=== PATIENT | female | born 1960 | race Two or more races ===

== ENCOUNTER → 2017-11-13 | Outpatient (CLI) | payer MEDICARE, OTHER ==
--- NOTE | 2017-11-13 16:39 | RAD ---
CT maxillofacial without contrast 11/13/2017 Indication: Ptosis of the left eye. Eyelid retraction of the right upper eyelid. Graves orbitopathy. Comparison: None available. Technique: Multiple axial CT images of the maxillary facial structures are provided. Without intravenous contrast. Coronal and sagittal reformats are provided. Findings: Visualized portions of the brain parenchyma. Normal. No ventriculomegaly. Sellar and suprasellar cistern are normal. There is straightening of the optic nerves bilaterally with suggestion of increase in intraorbital fat. There is enlargement of the right inferior rectus muscle. No suspicious orbital mass is identified. Globes are spherical and contour. No osseous antibodies identified. Paranasal sinuses are well aerated. Parotid spaces and submandibular spaces appear normal. Nasopharynx and oropharynx are normal in appearance. Lung base and floor of mouth appear normal. Mandible are intact. Temporal mandibular joints are normal. Mastoid air cells are well aerated. Skull base is intact. Impression: There is enlargement of the right inferior rectus muscle compatible with Graves' orbitopathy. There is increase in bilateral intraorbital fat is demonstrated by straightening of the optic nerves. PQRS Compliance Statement: One or more of the following individualized dose reduction techniques were utilized for this examination: 1. Automated exposure control 2. Adjustment of the mA and/or kV according to patient size 3. Use of iterative reconstruction technique
== END | disposition home or self-care (01) ==
LOC: CT 15:41
PROVIDERS: ATTEND Ophthalmology
DX: H02.531 Eyelid retraction right upper eyelid (principal); E05.00 Thyrotoxicosis with diffuse goiter without thyrotoxic crisis or storm; H02.402 Unspecified ptosis of left eyelid; H57.8 Other specified disorders of eye and adnexa
CPT/HCPCS: 70486

== ENCOUNTER → 2018-03-20 | Outpatient (CLI) | payer OTHER ==
--- NOTE | 2018-03-20 16:39 | RAD ---
EXAM: Left foot, 3 views. HISTORY: Stubbed great toe. COMPARISON: None. FINDINGS: Frontal, lateral and oblique views of the left foot are obtained. There is a mildly displaced fracture of the tuft of the second distal phalanx, of uncertain chronicity. No additional fracture is seen. No foreign body is seen. IMPRESSION: Mildly displaced fracture of the tuft of the second distal phalanx, of uncertain chronicity. No convincing first phalanx fracture is seen. Electronically signed by: Aspen Ahn MD (03/20/2018 4:36 PM) [facility]
== END | disposition home or self-care (01) ==
LOC: DXRAD 16:21
PROVIDERS: ATTEND Family Medicine
DX: S99.292A Other physeal fracture of phalanx of left toe, initial encounter for closed fracture (principal); X58.XXXA Exposure to other specified factors, initial encounter; Y93.89 Activity, other specified; Y92.89 Other specified places as the place of occurrence of the external cause; Y99.8 Other external cause status
CPT/HCPCS: 73620

== ENCOUNTER → 2018-04-08 | Outpatient (CLI) | payer OTHER ==
--- NOTE | 2018-04-08 11:00 | CARD ---
MR#: [id number] Date of Study: 04/08/2018 Ordering Physician: CHHAYA GAR, Referring Physician: CHHAYA GAR, Tech: Nina Campos RDCS APPROVED REPORT EXAM: Two-dimensional and M-mode echocardiogram with Doppler and color Doppler. INDICATION Cardiac Disease: CAD Surgery/Intervention CABG: Date: 2013 2D DIMENSIONS RVDd2.1 (2.9-3.5cm)Left Atrium(2D)3.3 (1.6-4.0cm) IVSd0.9 (0.7-1.1cm)Aortic Root(2D)2.4 (2.0-3.7cm) LVDd4.7 (3.9-5.9cm)LVOT Diameter2.1 (1.8-2.4cm) PWd0.9 (0.7-1.1cm)LVDs3.0 (2.5-4.0cm) FS (%) 30.0 %SV66.8 ml LVEF(%)60.0 (>50%) Aortic Valve AoV Peak Jesus.117.4cm/sAoV VTI24.7cm AO Peak GR.5.5mmHgLVOT Peak Jesus.100.4cm/s LVOT VTI 23.84cmAO Mean GR.3mmHg DAVE (VMAX)2.60qh4RUC (VTI)3.22cm2 Mitral Valve MV E Hpwyijju16.7cm/sMV DECEL [id number] MV A Hpsqupff79.9cm/sMV [id number] E/A Ratio1.4MVA (PHT)4.64cm2 Pulmonary Vein S1 Jrylvkiv82.9cm/sD2 Ffkahkka35.2cm/s LEFT VENTRICLE The left ventricle is normal size. There is normal left ventricular wall thickness. The left ventricu lar systolic function is normal and the ejection fraction is within normal range. The Ejection Fracti on is 55-60%. Septal motion consistent with post-operative state, otherwise, grossly normal wall bhargav on. Transmitral Doppler flow pattern is Grade II-pseudonormal filling dynamics. RIGHT VENTRICLE The right ventricle is normal size. The right ventricular systolic function is normal. ATRIA The left atrium size is normal. The right atrium size is normal. The interatrial septum is intact wit h no evidence for an atrial septal defect or patent foramen ovale as noted on 2-D or Doppler imaging. AORTIC VALVE The aortic valve is calcified but opens well. Doppler and Color Flow revealed no significant aortic r egurgitation. There is no significant aortic valvular stenosis. MITRAL VALVE The mitral valve is normal in structure and function. There is no evidence of mitral valve prolapse. There is no mitral valve stenosis. Doppler and Color Flow revealed no mitral valve regurgitation note d. TRICUSPID VALVE The tricuspid valve is normal in structure and function. Doppler and Color Flow revealed no tricuspid valve regurgitation noted. There is no tricuspid valve stenosis. PULMONIC VALVE The pulmonic valve is not well visualized. Doppler and Color Flow revealed no pulmonic valvular regur gitation. There is no pulmonic valvular stenosis. GREAT VESSELS The aortic root is normal in size. The ascending aorta is normal in size. The IVC is normal in size a nd collapses >50% with inspiration. PERICARDIAL EFFUSION There is no evidence of significant pericardial effusion. Critical Notification Critical Value: No <Conclusion> The left ventricular systolic function is normal and the ejection fraction is within normal range. Th e Ejection Fraction is 55-60%. Septal motion consistent with post-operative state, otherwise, grossly normal wall motion. Signed by : Chhaya Gar, Electronically Approved : 04/08/2018 10:59:10
== END | disposition home or self-care (01) ==
LOC: ECHO 08:57
PROVIDERS: ATTEND Internal Medicine Cardiovascular Disease
DX: I25.10 Atherosclerotic heart disease of native coronary artery without angina pectoris (principal)
CPT/HCPCS: 93306

== ENCOUNTER → 2018-06-20 | Outpatient (CLI) | payer OTHER ==
--- NOTE | 2018-06-20 11:58 | RAD ---
Lumbar spine, 5 views, 06/20/2018: HISTORY: Low back pain radiating down left leg The lumbar vertebral heights are well-maintained. No fracture or subluxation is evident. There is moderate disc space narrowing and marginal spurring at L5-S1. There are a few other scattered marginal spurs. The other intervertebral disc spaces are well-maintained. There are mild degenerative changes involving facet joints in the lower lumbar spine. There is no evidence of spondylolysis. Extensive aortoiliac calcific plaquing is present. IMPRESSION: 1. Mild to moderate degenerative change, particularly at the L5-S1 disc level. 2. No acute bony abnormality is detected. 3. Extensive aortoiliac atherosclerosis Electronically signed by: Jr Muñiz MD (06/20/2018 11:54 AM) [facility]
== END | disposition home or self-care (01) ==
LOC: DXRAD 11:10
PROVIDERS: ATTEND Family Medicine
DX: M47.897 Other spondylosis, lumbosacral region (principal); I70.0 Atherosclerosis of aorta; M48.07 Spinal stenosis, lumbosacral region; I25.10 Atherosclerotic heart disease of native coronary artery without angina pectoris
CPT/HCPCS: 72110

== ENCOUNTER 2018-08-18 14:07 | Emergency (ER) | payer OTHER ==
[2018-08-18 14:38] VITALS: BP 122/53
[2018-08-18 14:41] LABS: BASO # 0.1 x10^3/uL (0.0-0.2); BASO % 1 % (0-3); EOS # 0.2 x10^3/uL (0.0-0.7); EOS % 3 % (0-3); HEMATOCRIT 40.4 % (36.0-47.0); HEMOGLOBIN 13.6 g/dL (12.0-15.5); LYMPH # 2.5 x10^3/uL (1.0-4.8); LYMPH % 30 % (24-48); MEAN CORPUSCULAR HEMOGLOBIN 29 pg (25-35); MEAN CORPUSCULAR HGB CONC 34 g/dL (31-37); MEAN CORPUSCULAR VOLUME 87 fL (79-100); MONO # 0.4 x10^3/uL (0.0-1.1); MONO % 5 % (0-9); NEUT % 61 % (31-73); PLATELET COUNT 172 x10^3/uL (140-400); RED BLOOD COUNT 4.63 x10^6/uL (3.50-5.40); RED CELL DISTRIBUTION WIDTH 13.7 % (11.5-14.5); WHITE BLOOD COUNT 8.3 x10^3/uL (4.0-11.0)
[2018-08-18 14:53] LABS: ALBUMIN 3.8 g/dL (3.4-5.0); ALBUMIN/GLOBULIN RATIO 1.2 (1.0-1.7); CALCIUM 9.6 mg/dL (8.5-10.1); CREATININE 0.9 mg/dL (0.6-1.0); GFR 64.5; POTASSIUM 3.7 mmol/L (3.5-5.1); TOTAL BILIRUBIN 0.3 mg/dL (0.2-1.0); TOTAL PROTEIN 6.9 g/dL (6.4-8.2)
--- NOTE | 2018-08-18 15:04 | RAD ---
EXAM: CHEST 1 VIEW History: Chest pain COMPARISON: None available. TECHNIQUE: Single portable radiograph of the chest FINDINGS: The cardiac silhouette is unremarkable. The lungs are clear bilaterally. The costophrenic sulci are clear and well demarcated. IMPRESSION: No radiographic evidence of an acute cardiopulmonary process. Electronically signed by: Clayton Hudson MD (08/18/2018 3:01 PM) [place] [id number]
--- NOTE | 2018-08-18 15:33 | PHYS DOC ---
Past History Past Medical History: A-Fib, Angina, Anxiety, Depression, Hypothyroid, Other Past Surgical History: Alcohol Use: None Drug Use: None Adult General Chief Complaint Chief Complaint: CHEST PAIN [facility] HPI 58-year-old female presents with 4 day history of chest tightness and increasing shortness of breath. Denies diaphoresis. She states that it feels it is getting somewhat more progressive, but shortness of breath is about the same. Patient has COPD history and is already on maintenance medication and rescue inhaler. She has not been using her albuterol very often. She describes the chest pressure as a tightness around the middle of her chest. Patient has a history of triple bypass so she was concerned. Her physician directed her to come to the emergency room. She has not had a measured fever at home, but has been having chills. She is not sure if this is just a flashes with menopause. Had a cough with occasional clear sputum. Review of Systems Review of Systems Constitutional: Denies fever or chills [] Eyes: Denies change in visual acuity, redness, or eye pain [] HENT: Denies nasal congestion or sore throat [] Respiratory: Cough with shortness of breath [] Cardiovascular: No additional information not addressed in HPI [] GI: Denies abdominal pain, nausea, vomiting, bloody stools or diarrhea [] : Denies dysuria or hematuria [] Musculoskeletal: Denies back pain or joint pain [] Integument: Denies rash or skin lesions [] Neurologic: Denies headache, focal weakness or sensory changes [] Endocrine: Denies polyuria or polydipsia [] All other systems were reviewed and found to be within normal limits, except as documented in this note. Allergies Allergies Allergies Coded Allergies Type Severity Reaction Last Updated Verified codeine Allergy Unknown 08/18/18 Yes Physical Exam Physical Exam Constitutional: Well developed, well nourished, no acute distress, non-toxic appearance. [] HENT: Normocephalic, atraumatic, bilateral external ears normal, oropharynx moist, no oral exudates, nose normal. [] Eyes: PERRLA, EOMI, conjunctiva normal, no discharge. [] Neck: Normal range of motion, no tenderness, supple, no stridor. [] Cardiovascular:Heart rate regular rhythm, no murmur [] Lungs & Thorax: Mild wheezing at bilateral bases[] Abdomen: Bowel sounds normal, soft, no tenderness, no masses, no pulsatile masses. [] Skin: Warm, dry, no erythema, no rash. [] Back: No tenderness, no CVA tenderness. [] Extremities: No tenderness, no cyanosis, no clubbing, ROM intact, no edema. [] Neurologic: Alert and oriented X 3, normal motor function, normal sensory function, no focal deficits noted. [] Psychologic: Affect normal, judgement normal, mood normal. [] Current Patient Data Vital Signs Vital Signs Date Time Temp Pulse Resp B/P (MAP) Pulse Ox O2 Delivery O2 Flow Rate FiO2 08/18/18 14:38 57 18 100 Room Air Lab Results Laboratory Tests Test 08/18/18 14:14 White Blood Count 8.3 x10^3/uL (4.0-11.0) Red Blood Count 4.63 x10^6/uL (3.50-5.40) Hemoglobin 13.6 g/dL (12.0-15.5) Hematocrit 40.4 % (36.0-47.0) Mean Corpuscular Volume 87 fL (79-100) Mean Corpuscular Hemoglobin 29 pg (25-35) Mean Corpuscular Hemoglobin Concent 34 g/dL (31-37) Red Cell Distribution Width 13.7 % (11.5-14.5) Platelet Count 172 x10^3/uL (140-400) Neutrophils (%) (Auto) 61 % (31-73) Lymphocytes (%) (Auto) 30 % (24-48) Monocytes (%) (Auto) 5 % (0-9) Eosinophils (%) (Auto) 3 % (0-3) Basophils (%) (Auto) 1 % (0-3) Neutrophils # (Auto) 5.0 x10^3uL (1.8-7.7) Lymphocytes # (Auto) 2.5 x10^3/uL (1.0-4.8) Monocytes # (Auto) 0.4 x10^3/uL (0.0-1.1) Eosinophils # (Auto) 0.2 x10^3/uL (0.0-0.7) Basophils # (Auto) 0.1 x10^3/uL (0.0-0.2) Sodium Level 143 mmol/L (136-145) Potassium Level 3.7 mmol/L (3.5-5.1) Chloride Level 107 mmol/L (98-107) Carbon Dioxide Level 28 mmol/L (21-32) Anion Gap 8 (6-14) Blood Urea Nitrogen 16 mg/dL (7-20) Creatinine 0.9 mg/dL (0.6-1.0) Estimated GFR (Cockcroft-Gault) 64.5 BUN/Creatinine Ratio 18 (6-20) Glucose Level 103 mg/dL (70-99) H Calcium Level 9.6 mg/dL (8.5-10.1) Total Bilirubin 0.3 mg/dL (0.2-1.0) Aspartate Amino Transferase (AST) 20 U/L (15-37) Alanine Aminotransferase (ALT) 27 U/L (14-59) Alkaline Phosphatase 75 U/L (46-116) Troponin I Quantitative < 0.017 ng/mL (0-0.055) Total Protein 6.9 g/dL (6.4-8.2) Albumin 3.8 g/dL (3.4-5.0) Albumin/Globulin Ratio 1.2 (1.0-1.7) EKG EKG Sinus rhythm, rate 61, normal axis, no ST elevations or depressions.[] Radiology/Procedures Radiology/Procedures [] Impressions: EXAM: CHEST 1 VIEW History: Chest pain COMPARISON: None available. TECHNIQUE: Single portable radiograph of the chest FINDINGS: The cardiac silhouette is unremarkable. The lungs are clear bilaterally. The costophrenic sulci are clear and well demarcated. IMPRESSION: No radiographic evidence of an acute cardiopulmonary process. Electronically signed by: Clayton Hudson MD (08/18/2018 3:01 PM) [facility] DICTATED AND SIGNED BY: CLAYTON HUDSON MD DATE: 08/18/18 [id number] CC: JOSE LUIS DURAN DO; SHARON WILLIS MD Course & Med Decision Making Course & Med Decision Making Pertinent Labs and Imaging studies reviewed. (See chart for details) Chest x-rays unremarkable. Her labs are unremarkable. Her EKG is unremarkable. Her troponin is negative. I believe the patient may be having more trouble with her COPD. I will give her a DuoNeb breathing treatment. I believe the patient is having a COPD exacerbation. I will treat her with 50 mg of prednisone for 5 days. She is stable for discharge at this time. [] Dragon Disclaimer Dragon Disclaimer This electronic medical record was generated, in whole or in part, using a voice recognition dictation system. Departure Departure: Referrals: SHARON WILLIS MD (PCP) Scripts Prednisone (PREDNISONE) 50 Mg Tablet 1 TAB PO DAILY, #5 TAB Prov: JOSE LUIS DURAN DO 08/18/18 JOSE LUIS DURAN DO Aug 18, 2018 15:33
[2018-08-18] MEDS ORDERED: IPRATRPIUM/ALBUTEROL 0.5/2.5MG 3 ML NEBU. NEB ONE (15:45)
[2018-08-18] MEDS ORDERED: PRED50TA PO (16:24)
--- NOTE | 2018-08-18 17:23 | EKG ---
[address] [address] Test Date: 2018-08-18 Test Time: 14:16:12 Pat Name: EMILY JONES Department: Room: Gender: F Therapeutic Program Worker: : 1960 Requested By: JOSE LUIS DURAN Order Number: [id number] Reading MD: Joselito Calderón MD Measurements Intervals [place] Rate: 61 P: 47 ME: 140 QRS: 62 QRSD: 76 T: 49 QT: 422 QTc: 426 Interpretive Statements SINUS RHYTHM Electronically Signed On 08-20-2018 12:21:14 CDT by Joselito Calderón MD
== END 2018-08-18 16:42 | disposition home or self-care (01) ==
LOC: ER 14:07
DX: J44.1 Chronic obstructive pulmonary disease with (acute) exacerbation (principal); I48.91 Unspecified atrial fibrillation; F41.9 Anxiety disorder, unspecified; E03.9 Hypothyroidism, unspecified; Z88.5 Allergy status to narcotic agent
CPT/HCPCS: 36415; 71045; 80053; 84484; 85025; 93005; 94640; 99285; J7620

== ENCOUNTER → 2019-02-10 | Outpatient (CLI) | payer OTHER ==
[~2019-02-10] MED LIST: PRED50TA PO
== END | disposition home or self-care (01) ==
LOC: SURG 13:55
PROVIDERS: ATTEND Anesthesiology
DX: M54.16 Radiculopathy, lumbar region (principal); M54.2 Cervicalgia; M79.10 Myalgia, unspecified site; G43.709 Chronic migraine without aura, not intractable, without status migrainosus
CPT/HCPCS: 99204

== ENCOUNTER 2019-06-14 10:30 | Emergency (ER) | payer OTHER, MEDICAID ==
[~2019-06-14] VITALS: Ht 154.9 cm; Wt 74.8 kg
--- NOTE | 2019-06-14 10:56 | PHYS DOC ---
Past History Past Medical History: A-Fib (resolved post thyroid procedure), Angina, Anxiety, Depression, Hypothyroid, Other Past Surgical History: Coronary Bypass Surgery, Smoking: Cigarettes, Less than 1pk/day Alcohol Use: None Drug Use: None Adult General Chief Complaint Chief Complaint: CHEST WALL PAIN [facility] HPI Patient is a 59-year-old female presents with right back pain that started last night, improved with a pain medication ointment that she applied last night. Was doing well when she woke up this morning but as she started moving it became wor se. No worsening with exertion. No shortness of breath beyond her usual. No new swelling in legs feet or ankles. This is not like her need for coronary artery bypass surgery which felt like indigestion at that time. Symptoms are moderate to severe in intensity. No radiation. Patient denies any loss of bowel or bladder control. No fever. No history of injectable drug use/abuse.[] Review of Systems Review of Systems Constitutional: Denies fever or chills [] Eyes: Denies change in visual acuity, redness, or eye pain [] HENT: Denies nasal congestion or sore throat [] Respiratory: Denies cough or shortness of breath [] Cardiovascular: No additional information not addressed in HPI [] GI: Denies abdominal pain, nausea, vomiting, bloody stools or diarrhea [] : Denies dysuria or hematuria [] Musculoskeletal: See history of present illness[] Integument: Denies rash or skin lesions [] Neurologic: Denies headache, focal weakness or sensory changes [] Endocrine: Denies polyuria or polydipsia [] All other systems were reviewed and found to be within normal limits, except as documented in this note. Allergies Allergies Allergies Coded Allergies Type Severity Reaction Last Updated Verified codeine Allergy Unknown 08/18/18 Yes Physical Exam Physical Exam Constitutional: Well developed, well nourished, no acute distress, non-toxic appearance. [] HENT: Normocephalic, atraumatic, bilateral external ears normal, oropharynx moist, no oral exudates, nose normal. [] Eyes: PERRLA, EOMI, conjunctiva normal, no discharge. [] Neck: Normal range of motion, no tenderness, supple, no stridor. [] Cardiovascular:Heart rate regular rhythm, no murmur [] Lungs & Thorax: Bilateral breath sounds clear to auscultation [] Abdomen: Bowel sounds normal, soft, no tenderness, no masses, no pulsatile masses. [] Skin: Warm, dry, no erythema, no rash. [] Back: Tenderness along the right side thoracic paraspinal musculature. No flail segment. No crepitus., no CVA tenderness. [] Extremities: No tenderness, no cyanosis, no clubbing, ROM intact, no edema. [] Neurologic: Alert and oriented X 3, normal motor function, normal sensory function, no focal deficits noted. [] Psychologic: Affect normal, judgement normal, mood normal. [] EKG EKG EKG shows a sinus rhythm at 56 bpm, with normal axis, QTC of 431 ms, no ST elevations. Interpreted by me at 11:30[] Radiology/Procedures Radiology/Procedures PROCEDURE: CHEST PA & LATERAL Chest radiograph 06/14/2019 11:10 AM INDICATION: Low back pain COMPARISON: August 18, 2018 TECHNIQUE: Frontal and lateral views of the chest are provided. FINDINGS: The cardiomediastinal silhouette is within normal limits. Median sternotomy changes are provided. There are no pleural effusions. There is no pulmonary vascular congestion. There is no pneumothorax. The lungs are clear. No significant osseous abnormality is identified. IMPRESSION: No acute cardiopulmonary process.[] Course & Med Decision Making Course & Med Decision Making Pertinent Labs and Imaging studies reviewed. (See chart for details) ED course: Patient arrived, was placed in bed, and tolerated exam well. She was given pain medicines and muscle relaxers which improved her pain from her initial 8 down to a 2. Findings were discussed with the patient. All questions were answered. She was discharged in improved condition. Medical decision making: There is no evidence of a pulmonary embolism, acute coronary syndrome, nor significant electrolyte abnormality. Patient does have evidence of urinary tract infection we'll be treating that. This does not appear to be pyelonephritis nor systemic toxicity. No evidence of cauda equina syndrome. No evidence of pneumonia.[] Dragon Disclaimer Dragon Disclaimer This electronic medical record was generated, in whole or in part, using a voice recognition dictation system. Departure Departure: Impression: Primary Impression: Acute thoracic back pain Additional Impression: Urinary tract infection Disposition: HOME, SELF-CARE Condition: IMPROVED Referrals: SHARON WILLIS MD (PCP) Follow-up in 2 days Patient Instructions: Back Exercises, Back Pain, Adult, Urinary Tract Infection Additional Instructions: Drink plenty of fluids. Follow-up with your regular doctor in 2 days. Return to the ER if worsening discomfort, difficulty breathing, or any other concerns. Scripts Orphenadrine Citrate (ORPHENADRINE CITRATE) 100 Mg Tablet.er 100 MG PO BID for BACK PAIN, #20 TAB.SR Prov: MIMI RETANA DO 06/14/19 Meloxicam (MELOXICAM) 7.5 Mg Tablet 7.5 MG PO DAILY for PAIN, #20 TAB Prov: MIMI RETANA DO 06/14/19 Sulfamethoxazole/Trimethoprim (BACTRIM DS TABLET) 1 Each Tablet 1 TAB PO BID for urinary tract infection, #20 TAB Prov: MIMI RETANA DO 06/14/19 Problem Qualifiers Primary Impression: Acute thoracic back pain Back pain laterality: right Qualified Codes: M54.6 - Pain in thoracic spine Additional Impression: Urinary tract infection Urinary tract infection type: site unspecified Hematuria presence: without hematuria Qualified Codes: N39.0 - Urinary tract infection, site not specified MIMI RETANA DO Jun 14, 2019 10:56
[2019-06-14] MEDS ORDERED: KETOROLAC 15 MG/ML VIAL. IV ONE (11:00)
[2019-06-14] MEDS ORDERED: ORPHENADRINE CITRATE 60 MG/2 ML VIAL. IM ONE (11:00)
--- NOTE | 2019-06-14 11:21 | RAD ---
Chest radiograph 06/14/2019 11:10 AM INDICATION: Low back pain COMPARISON: August 18, 2018 TECHNIQUE: Frontal and lateral views of the chest are provided. FINDINGS: The cardiomediastinal silhouette is within normal limits. Median sternotomy changes are provided. There are no pleural effusions. There is no pulmonary vascular congestion. There is no pneumothorax. The lungs are clear. No significant osseous abnormality is identified. IMPRESSION: No acute cardiopulmonary process. Electronically signed by: Marlen Olvera MD (06/14/2019 11:19 AM) [facility]
[2019-06-14 11:23] LABS: BASO # 0.1 x10^3/uL (0.0-0.2); BASO % 1 % (0-3); EOS # 0.2 x10^3/uL (0.0-0.7); EOS % 2 % (0-3); HEMATOCRIT 42.2 % (36.0-47.0); HEMOGLOBIN 13.9 g/dL (12.0-15.5); LYMPH # 2.1 x10^3/uL (1.0-4.8); LYMPH % 30 % (24-48); MEAN CORPUSCULAR HEMOGLOBIN 29 pg (25-35); MEAN CORPUSCULAR HGB CONC 33 g/dL (31-37); MEAN CORPUSCULAR VOLUME 88 fL (79-100); MONO # 0.6 x10^3/uL (0.0-1.1); MONO % 8 % (0-9); NEUT # 4.2 x10^3uL (1.8-7.7); NEUT % 59 % (31-73); PLATELET COUNT 175 x10^3/uL (140-400); RED BLOOD COUNT 4.82 x10^6/uL (3.50-5.40); RED CELL DISTRIBUTION WIDTH 13.6 % (11.5-14.5); WHITE BLOOD COUNT 7.1 x10^3/uL (4.0-11.0)
[2019-06-14 11:25] LABS: BARBITURATES NEG (NEG); BENZODIAZEPINES NEG (NEG); CANNABINOIDS NEG (NEG); COCAINE NEG (NEG); METHADONE NEG (NEG); OPIATES NEG (NEG); PHENCYCLIDINE NEG (NEG)
[2019-06-14 11:26] LABS: AMPHETAMINE/METHAMPHETAMINE NEG (NEG)
[2019-06-14 11:35] LABS: ALBUMIN 3.9 g/dL (3.4-5.0); ALBUMIN/GLOBULIN RATIO 1.2 (1.0-1.7); CREATININE 0.8 mg/dL (0.6-1.0); GFR 73.7; MAGNESIUM 2.3 mg/dL (1.8-2.4); POTASSIUM 4.2 mmol/L (3.5-5.1); TOTAL BILIRUBIN 0.3 mg/dL (0.2-1.0); TOTAL PROTEIN 7.2 g/dL (6.4-8.2)
[2019-06-14 11:37] LABS: BACTERIA,URINE FEW /HPF (0-FEW); BILIRUBIN,URINE NEG (NEG); CLARITY,URINE HAZY; COLOR,URINE YELLOW; GLUCOSE,URINE NEG (NEG); NITRITE,URINE NEG (NEG); RBC,URINE OCC /HPF (0-2); SQUAMOUS EPITHELIAL CELL,UR FEW /LPF; UROBILINOGEN,URINE 1 mg/dL (0.2 mg/dL)
[2019-06-14 12:02] VITALS: BP 106/68
[2019-06-14] MEDS ORDERED: SULF1TAB24 PO (12:04)
[2019-06-14] MEDS ORDERED: MELO7.5T29 PO (12:04)
[2019-06-14] MEDS ORDERED: ORPH-16 PO (12:04)
== END 2019-06-14 12:15 | disposition home or self-care (01) ==
LOC: ER 10:30
DX: N39.0 Urinary tract infection, site not specified (principal); M54.6 Pain in thoracic spine; M54.5 Low back pain; E03.9 Hypothyroidism, unspecified; Z95.1 Presence of aortocoronary bypass graft; Z98.890 Other specified postprocedural states; F17.210 Nicotine dependence, cigarettes, uncomplicated; Z88.5 Allergy status to narcotic agent
CPT/HCPCS: 36415; 71046; 80053; 80307; 81001; 81025; 83690; 83735; 83880; 84484; 85025; 85379; 87086; 96372; 96374; 99285; J1885; J2360

== ENCOUNTER 2019-09-14 17:59 | Emergency (ER) | payer OTHER, MEDICAID ==
[~2019-09-14] VITALS: Ht 154.9 cm; Wt 74.8 kg
[~2019-09-14 17:59] MED LIST changes: +MELO7.5T29 PO; +ORPH-16 PO; +SULF1TAB24 PO
[2019-09-14] MEDS ORDERED: PRED20TA PO (18:41)
[2019-09-14] MEDS ORDERED: ORPH-16 PO (18:41)
--- NOTE | 2019-09-14 18:41 | PHYS DOC ---
Past History Past Medical History: A-Fib, Angina, Anxiety, Depression, Hypothyroid Past Surgical History: Coronary Bypass Surgery, Smoking: Cigarettes, Less than 1pk/day Alcohol Use: Rarely Drug Use: None Adult General Chief Complaint Chief Complaint: LOWER EXT PAIN HPI HPI 59-year-old female presents with 3 day history of left lower extremity pain radiating posteriorly. Patient reports history of known sciatica. Reports symp toms have become worse after patient "caught herself" 3 days ago. Denies actual trauma. Denies deformity. Denies knee pain or ankle pain. Denies swelling. Patient reports worse when sitting. Denies loss of bowel or bladder. Review of Systems Review of Systems Constitutional: Denies fever or chills Eyes: Denies redness or eye pain HENT: Denies nasal congestion or sore throat Respiratory: Denies cough or shortness of breath Cardiovascular: Denies chest pain or palpitations GI: Denies abdominal pain, nausea, or vomiting : Denies dysuria or hematuria Musculoskeletal: Reports back pain and left lower extremity pain Integument: Denies rash or skin lesions Neurologic: Denies headache, focal weakness or sensory changes Complete systems were reviewed and found to be within normal limits, except as documented in this note. Allergies Allergies Allergies Coded Allergies Type Severity Reaction Last Updated Verified cefdinir Allergy Unknown 09/14/19 Yes codeine Allergy Unknown 09/14/19 Yes Physical Exam Physical Exam Constitutional: Well developed, well nourished, no acute distress, non-toxic appearance HENT: Normocephalic, atraumatic, oropharynx moist Eyes: Conjunctiva normal, no discharge Neck: Normal range of motion, no tenderness, supple Cardiovascular: Heart rate normal, regular rhythm Lungs & Thorax: Bilateral breath sounds clear to auscultation, no wheezing Abdomen: Soft, no tenderness Skin: Warm, dry, no erythema, no rash Back: No midline tenderness, lower paraspinal pain on palpation L>R, no CVA tenderness Extremities: No tenderness, ROM intact, no edema, no deformity, left knee stable and nontender, anterior drawer test negative. Neurologic: Alert and oriented X 3, no focal deficits noted Psychologic: Affect normal, judgement normal Current Patient Data Vital Signs Vital Signs Date Time Temp Pulse Resp B/P (MAP) Pulse Ox O2 Delivery O2 Flow Rate FiO2 09/14/19 18:16 97.9 67 18 98 Room Air EKG EKG [] Radiology/Procedures Radiology/Procedures [] Course & Med Decision Making Course & Med Decision Making Patient presents with history of present illness and physical exam consistent for acute exacerbation of sciatica. Patient reports history of chronic back ramin n. Symptomatic treatment provided. Patient stable for discharge with outpatient follow-up with PCP/pain management. Pain management referral provided. Discussed findings and plan with patient and family, who acknowledge understanding and agreement. Dragon Disclaimer Dragon Disclaimer This electronic medical record was generated, in whole or in part, using a voice recognition dictation system. Departure Departure: Impression: Primary Impression: Sciatic leg pain Disposition: HOME, SELF-CARE Condition: STABLE Referrals: SHARON WILLIS MD (PCP) Patient Instructions: Sciatica, Leoh-is-Pdxo Additional Instructions: Please follow with Dr. Hendrix at [facility] Scripts Orphenadrine Citrate (ORPHENADRINE CITRATE) 100 Mg Tablet.er 1 TAB PO BID PRN for MUSCLE PAIN, #14 TAB 0 Refills Prov: TOSIN MOSES DO 09/14/19 Prednisone (PREDNISONE) 20 Mg Tablet 2 TAB PO DAILY for Pain, #8 TAB Start tomorrow, Saturday09/15/19 Prov: TOSIN MOSES DO 09/14/19 TOSIN MOSES DO Sep 14, 2019 18:41
[2019-09-14] MEDS ORDERED: DEXAMETHASONE 4 MG TABLET PO ONE (18:45)
[2019-09-14] MEDS ORDERED: predniSONE 10 MG TABLET ONE (18:45)
[2019-09-14] MEDS ORDERED: ORPHENADRINE CITRATE 60 MG/2 ML VIAL. IM ONE (18:45)
[2019-09-14] MEDS ORDERED: ORPHENADRINE CITRATE 60 MG/2 ML VIAL. ONE (18:45)
[2019-09-14 19:03] VITALS: BP 124/71
== END 2019-09-14 19:04 | disposition home or self-care (01) ==
LOC: ER 17:59
DX: M54.32 Sciatica, left side (principal); I48.91 Unspecified atrial fibrillation; E03.9 Hypothyroidism, unspecified; G89.29 Other chronic pain; M54.9 Dorsalgia, unspecified; F17.210 Nicotine dependence, cigarettes, uncomplicated; Z95.1 Presence of aortocoronary bypass graft; Z88.5 Allergy status to narcotic agent; Z88.1 Allergy status to other antibiotic agents
CPT/HCPCS: 96372; 99284; J2360; J8540

== ENCOUNTER → 2020-02-17 | Outpatient (CLI) | payer OTHER, MEDICAID ==
[~2020-02-17] MED LIST changes: +PRED20TA PO
--- NOTE | 2020-02-17 15:39 | RAD ---
EXAM: Chest, 2 views. HISTORY: Shortness of air. COPD. COMPARISON: 06/14/2019 FINDINGS: 2 views of the chest are obtained. There is no infiltrate, pleural effusion or pneumothorax. The heart is normal in size. There are findings consistent with CABG. IMPRESSION: No acute pulmonary finding. Electronically signed by: Aspen Ahn MD (02/17/2020 3:36 PM) [facility]
== END ==
LOC: DXRAD 15:23
PROVIDERS: ATTEND Family Medicine
DX: J44.9 Chronic obstructive pulmonary disease, unspecified (principal)
CPT/HCPCS: 71046

== ENCOUNTER 2020-05-02 11:55 | Emergency (ER) | payer OTHER, MEDICAID ==
[~2020-05-02] VITALS: Ht 156.2 cm; Wt 83.5 kg
[2020-05-02] MEDS ORDERED: ASPIRIN CHEWABLE 81 MG TABLET. PO ONE (12:00)
[2020-05-02] MEDS ORDERED: IV NORMAL SALINE 1,000ML 1,000 ML IV SCH (12:00)
--- NOTE | 2020-05-02 12:21 | EKG ---
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
[2020-05-02 12:32] LABS: BASO # 0.1 x10^3/uL (0.0-0.2); BASO % 1 % (0-3); EOS # 0.2 x10^3/uL (0.0-0.7); EOS % 3 % (0-3); HEMATOCRIT 41.2 % (36.0-47.0); HEMOGLOBIN 13.9 g/dL (12.0-15.5); LYMPH # 2.2 x10^3/uL (1.0-4.8); LYMPH % 25 % (24-48); MEAN CORPUSCULAR HEMOGLOBIN 29 pg (25-35); MEAN CORPUSCULAR HGB CONC 34 g/dL (31-37); MEAN CORPUSCULAR VOLUME 86 fL (79-100); MONO # 0.7 x10^3/uL (0.0-1.1); MONO % 8 % (0-9); NEUT # 5.7 x10^3uL (1.8-7.7); NEUT % 64 % (31-73); PLATELET COUNT 177 x10^3/uL (140-400); RED CELL DISTRIBUTION WIDTH 13.2 % (11.5-14.5); WHITE BLOOD COUNT 8.9 x10^3/uL (4.0-11.0)
--- NOTE | 2020-05-02 12:34 | RAD ---
EXAM: Chest, single view. HISTORY: Chest pain. COMPARISON: 02/17/2020 FINDINGS: A frontal view of the chest is obtained. There is no infiltrate, pleural effusion or pneumothorax. The heart is normal in size. There is evidence of prior CABG. IMPRESSION: No acute pulmonary finding. Electronically signed by: Aspen Ahn MD (05/02/2020 12:31 PM) [id number]
[2020-05-02 12:43] LABS: CALCIUM 9.3 mg/dL (8.5-10.1); GFR 56.7; POTASSIUM 3.9 mmol/L (3.5-5.1)
[2020-05-02 12:56] LABS: ALBUMIN 3.6 g/dL (3.4-5.0); TOTAL BILIRUBIN 0.3 mg/dL (0.2-1.0); TOTAL PROTEIN 7.2 g/dL (6.4-8.2)
--- NOTE | 2020-05-02 13:01 | PHYS DOC ---
Past History Past Medical History: Hypertension, Hypothyroid, [place] Past Surgical History: Coronary Bypass Surgery Smoking: Cigarettes, Less than 1pk/day Alcohol Use: Rarely Drug Use: None General Adult EDM: Chief Complaint: CHEST PAIN HPI: HPI: 60-year-old female presents with left-sided chest pain. Patient has been having discomfort every day for several days now. She is active and is always moving things around at helping people move boxes. She has not been doing anything extra strenuous. She denies shortness of breath or diaphoresis. Her pain episodes only last a couple of minutes. The pain is sharp and stays in the left side of the chest. She states that it does not feel anything like when she had a heart attack before her triple bypass. She only came in today because the episodes seem to be more frequent and she wanted make sure there is nothing going on. Denies fever or chills. Review of Systems: Review of Systems: Constitutional: Denies fever or chills Eyes: Denies change in visual acuity HENT: Denies nasal congestion or sore throat Respiratory: Denies cough or shortness of breath Cardiovascular: Chest pain GI: Denies abdominal pain, nausea, vomiting, bloody stools or diarrhea : Denies dysuria Musculoskeletal: Denies back pain or joint pain Integument: Denies rash Neurologic: Denies headache, focal weakness or sensory changes Endocrine: Denies polyuria or polydipsia Lymphatic: Denies swollen glands Psychiatric: Denies depression or anxiety Heart Score: HEART Score for Chest Pain: HEART Score for Chest Pain Response (Comments) Value History Slighlty/Non-Suspicious 0 Age >45 - < 65 1 Risk Factors >3 Risk Factors or Hx CAD 2 Troponin < Normal Limit 0 Total 3 Risk Factors: Risk Factors: DM, Current or recent (<one month) smoker, HTN, HLP, family histo ry of CAD, obesity. Risk Scores: Score 0 - 3: 2.5% MACE over next 6 weeks - Discharge Home Score 4 - 6: 20.3% MACE over next 6 weeks - Admit for Clinical Observation Score 7 - 10: 72.7% MACE over next 6 weeks - Early Invasive Strategies Current Medications: Current Meds: Current Medications Medications (Trade) Dose Ordered Sig/Kamran Start Time Stop Time Status Last Admin Dose Admin Aspirin (Aspirin Chewable) 324 mg 1X ONCE 05/02/20 12:00 05/02/20 12:04 DC Sodium Chloride 1,000 ml @ 100 mls/hr Q10H 05/02/20 12:00 05/02/20 21:59 Allergies: Allergies: Allergies Coded Allergies Type Severity Reaction Last Updated Verified cefdinir Allergy Unknown 09/14/19 Yes codeine Allergy Unknown 09/14/19 Yes Physical Exam: PE: Constitutional: Well developed, obese, well nourished, no acute distress, non- toxic appearance. [] HENT: Normocephalic, atraumatic, bilateral external ears normal, oropharynx moist, no oral exudates, nose normal. [] Eyes: PERRLA, EOMI, conjunctiva normal, no discharge. [] Neck: Normal range of motion, no tenderness, supple, no stridor. [] Cardiovascular:Heart rate regular rhythm, no murmur [] Lungs & Thorax: Bilateral breath sounds clear to auscultation [] Abdomen: Bowel sounds normal, soft, no tenderness, no masses, no pulsatile masses. [] Skin: Warm, dry, no erythema, no rash. [] Back: No tenderness, no CVA tenderness. [] Extremities: No tenderness, no cyanosis, no clubbing, ROM intact, no edema. [] Neurologic: Alert and oriented X 3, normal motor function, normal sensory function, no focal deficits noted. [] Psychologic: Affect normal, judgement normal, mood normal. [] Current Patient Data: Labs: Laboratory Tests Test 05/02/20 12:15 White Blood Count 8.9 x10^3/uL (4.0-11.0) Red Blood Count 4.80 x10^6/uL (3.50-5.40) Hemoglobin 13.9 g/dL (12.0-15.5) Hematocrit 41.2 % (36.0-47.0) Mean Corpuscular Volume 86 fL (79-100) Mean Corpuscular Hemoglobin 29 pg (25-35) Mean Corpuscular Hemoglobin Concent 34 g/dL (31-37) Red Cell Distribution Width 13.2 % (11.5-14.5) Platelet Count 177 x10^3/uL (140-400) Neutrophils (%) (Auto) 64 % (31-73) Lymphocytes (%) (Auto) 25 % (24-48) Monocytes (%) (Auto) 8 % (0-9) Eosinophils (%) (Auto) 3 % (0-3) Basophils (%) (Auto) 1 % (0-3) Neutrophils # (Auto) 5.7 x10^3uL (1.8-7.7) Lymphocytes # (Auto) 2.2 x10^3/uL (1.0-4.8) Monocytes # (Auto) 0.7 x10^3/uL (0.0-1.1) Eosinophils # (Auto) 0.2 x10^3/uL (0.0-0.7) Basophils # (Auto) 0.1 x10^3/uL (0.0-0.2) Vital Signs: Vital Signs Date Time Temp Pulse Resp B/P (MAP) Pulse Ox O2 Delivery O2 Flow Rate FiO2 05/02/20 12:13 98.3 72 18 136/69 (91) 97 Room Air EKG: EKG: Sinus rhythm, rate 61, normal axis, no ST elevations or depressions. [] Radiology/Procedures: Radiology/Procedures: [] Impressions: EXAM: Chest, single view. HISTORY: Chest pain. COMPARISON: 02/17/2020 FINDINGS: A frontal view of the chest is obtained. There is no infiltrate, pleural effusion or pneumothorax. The heart is normal in size. There is evidence of prior CABG. IMPRESSION: No acute pulmonary finding. Electronically signed by: Aspen Ahn MD (05/02/2020 12:31 PM) [id number] DICTATED AND SIGNED BY: ASPEN AHN MD DATE: 05/02/20 1231 CC: JOSE LUIS DURAN DO; SHARON WILLIS MD ~ Course & Med Decision Making: Course & Med Decision Making Pertinent Labs and Imaging studies reviewed. (See chart for details) The patient's labs are unremarkable. Her EKG is unremarkable. Her chest x-ray is unremarkable. The short episodes of her pain is reassuring. It does not appear to be cardiopulmonary in nature. This could be musculoskeletal. I have advised that she take [id number] pain medication. She is stable for discharge at this time. [] Dragon Disclaimer: Dragon Disclaimer: This electronic medical record was generated, in whole or in part, using a voice recognition dictation system. Departure Departure: Impression: Primary Impression: Chest pain Qualified Codes: R07.9 - Chest pain, unspecified Disposition: 01 HOME/RESIDENCE PRIOR TO ADM Condition: STABLE Referrals: SHARON WILLIS MD (PCP) Patient Instructions: Chest Pain (Nonspecific), [id number] Justification of Admission: Justification of Admission: Justification of Admission Dx: N/A JOSE LUIS DURAN DO May 02, 2020 13:01
[2020-05-02 13:46] LABS: BACTERIA,URINE FEW /HPF (0-FEW); BILIRUBIN,URINE NEG (NEG); CLARITY,URINE CLEAR; COLOR,URINE YELLOW; GLUCOSE,URINE NEG (NEG); NITRITE,URINE NEG (NEG); SQUAMOUS EPITHELIAL CELL,UR FEW /LPF; UROBILINOGEN,URINE 0.2 mg/dL (0.2 mg/dL)
[2020-05-02 14:40] VITALS: BP 134/59
== END 2020-05-02 14:46 | disposition home or self-care (01) ==
LOC: ER 11:55
DX: R07.89 Other chest pain (principal); I10 Essential (primary) hypertension; E03.9 Hypothyroidism, unspecified; I25.2 Old myocardial infarction; F17.210 Nicotine dependence, cigarettes, uncomplicated; Z95.1 Presence of aortocoronary bypass graft; Z88.1 Allergy status to other antibiotic agents; Z88.5 Allergy status to narcotic agent
CPT/HCPCS: 36415; 71045; 80053; 81001; 83880; 84484; 85025; 87086; 93005; 99285; J7030

== ENCOUNTER → 2020-05-10 | Outpatient (CLI) | payer OTHER, MEDICAID ==
[2020-05-02 14:40] VITALS: BP 134/59
--- NOTE | 2020-05-10 09:57 | CARD ---
MR#: [id number] Date of Study: 05/10/2020 Ordering Physician: CHHAYA CALDERÓN, Referring Physician: CHHAYA CALDERÓN, Tech: Gayle Nolasco APPROVED REPORT EXAM: Two-dimensional and M-mode echocardiogram with Doppler and color Doppler. Other Information Quality : AverageHR: 60bpm INDICATION Cardiac Disease: CAD Surgery/Intervention CABG: Date: 2013 RISK FACTORS Hypertension Hyperlipidemia Smoking 2D DIMENSIONS RVDd3.4 (2.9-3.5cm)Left Atrium(2D)3.3 (1.6-4.0cm) IVSd0.8 (0.7-1.1cm)Aortic Root(2D)2.9 (2.0-3.7cm) LVDd4.5 (3.9-5.9cm)LVOT Diameter1.9 (1.8-2.4cm) PWd0.8 (0.7-1.1cm)LVDs3.0 (2.5-4.0cm) FS (%) 33.8 %SV56.9 ml LVEF(%)62.8 (>50%) Aortic Valve AoV Peak Jesus.148.7cm/sAoV VTI35.4cm AO Peak GR.8.8mmHgLVOT Peak Jesus.107.7cm/s LVOT VTI 27.02cmAO Mean GR.4mmHg DAVE (VMAX)1.34yw8DLU (VTI)2.09cm2 Mitral Valve MV E Sglhjfcy95.3cm/sMV E Peak Gr.2mmHg MV DECEL [id number] A Jnqhaukw22.1cm/s MV E Mean Gr.1mmHgE/A Ratio1.2 Pulmonary Valve PV Peak Esirgwqu85.2cm/sPV Peak Grad.3mmHg Tricuspid Valve TR P. Gasyonuz142nz/sRAP MQVOYKXF1qdOe TR Peak Gr.70qpBxGHLW10jsGp Pulmonary Vein S1 Aoxyjghu28.9cm/sD2 Rgjhcaup76.0cm/s LEFT VENTRICLE The left ventricle is normal size. There is normal left ventricular wall thickness. The left ventricu lar systolic function is normal and the ejection fraction is within normal range. The Ejection Fracti on is 55-60%. There is normal LV segmental wall motion. Transmitral Doppler flow pattern is Grade II- pseudonormal filling dynamics. RIGHT VENTRICLE The right ventricle is normal size. There is normal right ventricular wall thickness. The right ventr icular systolic function is normal. ATRIA The left atrium size is normal. The right atrium size is normal. The interatrial septum is intact wit h no evidence for an atrial septal defect or patent foramen ovale as noted on 2-D or Doppler imaging. AORTIC VALVE The aortic valve is normal in structure and function. Doppler and Color Flow revealed no significant aortic regurgitation. There is no significant aortic valvular stenosis. MITRAL VALVE The mitral valve is normal in structure and function. There is no evidence of mitral valve prolapse. There is no mitral valve stenosis. Doppler and Color-flow revealed trace mitral regurgitation. TRICUSPID VALVE The tricuspid valve is normal in structure and function. Doppler and Color Flow revealed trace tricus pid regurgitation with an estimated PAP of 30 mmHg. There is no tricuspid valve stenosis. PULMONIC VALVE The pulmonic valve is not well visualized. Doppler and Color Flow revealed no pulmonic valvular regur gitation. There is no pulmonic valvular stenosis. GREAT VESSELS The aortic root is normal in size. The IVC is normal in size and collapses >50% with inspiration. PERICARDIAL EFFUSION There is no evidence of significant pericardial effusion. Critical Notification Critical Value: No <Conclusion> The left ventricular systolic function is normal and the ejection fraction is within normal range. Th e Ejection Fraction is 55-60%. There is normal LV segmental wall motion. Signed by : Chhaya Calderón, Electronically Approved : 05/10/2020 09:56:30
== END | disposition home or self-care (01) ==
LOC: ECHO 08:42
PROVIDERS: ATTEND Internal Medicine Cardiovascular Disease
DX: I25.10 Atherosclerotic heart disease of native coronary artery without angina pectoris (principal)
CPT/HCPCS: 93306

== ENCOUNTER 2020-08-08 13:15 | Emergency (ER) | payer OTHER, MEDICAID ==
[~2020-08-08] VITALS: Ht 154.9 cm; Wt 88.0 kg
--- NOTE | 2020-08-08 13:38 | PHYS DOC ---
Past History Past Medical History: Hypertension, Hypothyroid, [place] Past Surgical History: Coronary Bypass Surgery Smoking: Cigarettes, Less than 1pk/day Alcohol Use: Rarely Drug Use: None General Adult EDM: Chief Complaint: CHEST PAIN HPI: HPI: 60-year-old female presents with chest pain. This started about 90 minutes prior to arrival. At its worst was 7 out of 10. Patient took 2 nitro and is now 0 out of 10. She describes the pain as a pressure sensation. She also gets a GERD type feeling of burning in her chest up to her neck. These are the same symptoms that she had with her heart attack in 2016. She had triple bypass at that time. Patient was recently seen by Dr. Calderón and no abnormalities were found. The patient believes that they did a cath and an echocardiogram at that time. The patient has been having some intermittent discomfort to a milder degree like this. Usually she can control it with breathing exercises or nitro. She has not used nitro this month until today. She typically uses it several times a month. Review of Systems: Review of Systems: Constitutional: Denies fever or chills Eyes: Denies change in visual acuity HENT: Denies nasal congestion or sore throat Respiratory: Denies cough or shortness of breath Cardiovascular: Chest pain GI: Denies abdominal pain, nausea, vomiting, bloody stools or diarrhea : Denies dysuria Musculoskeletal: Denies back pain or joint pain Integument: Denies rash Neurologic: Denies headache, focal weakness or sensory changes Endocrine: Denies polyuria or polydipsia Lymphatic: Denies swollen glands Psychiatric: Denies depression or anxiety Heart Score: HEART Score for Chest Pain: HEART Score for Chest Pain Response (Comments) Value History Slighlty/Non-Suspicious 0 ECG Normal 0 Age >45 - < 65 1 Risk Factors >3 Risk Factors or Hx CAD 2 Troponin < Normal Limit 0 Total 3 Risk Factors: Risk Factors: DM, Current or recent (<one month) smoker, HTN, HLP, family history of CAD, obesity. Risk Scores: Score 0 - 3: 2.5% MACE over next 6 weeks - Discharge Home Score 4 - 6: 20.3% MACE over next 6 weeks - Admit for Clinical Observation Score 7 - 10: 72.7% MACE over next 6 weeks - Early Invasive Strategies Allergies: Allergies: Allergies Coded Allergies Type Severity Reaction Last Updated Verified cefdinir Allergy Unknown 09/14/19 Yes codeine Allergy Unknown 09/14/19 Yes Physical Exam: PE: Constitutional: Well developed, well nourished, no acute distress, non-toxic appearance. [] HENT: Normocephalic, atraumatic, bilateral external ears normal, oropharynx moist, no oral exudates, nose normal. [] Eyes: PERRLA, EOMI, conjunctiva normal, no discharge. [] Neck: Normal range of motion, no tenderness, supple, no stridor. [] Cardiovascular: Heart rate regular rhythm, no murmur [] Lungs & Thorax: Bilateral breath sounds clear to auscultation [] Abdomen: Bowel sounds normal, soft, no tenderness, no masses, no pulsatile masses. [] Skin: Warm, dry, no erythema, no rash. [] Back: No tenderness, no CVA tenderness. [] Extremities: No tenderness, no cyanosis, no clubbing, ROM intact, no edema. [] Neurologic: Alert and oriented X 3, normal motor function, normal sensory function, no focal deficits noted. [] Psychologic: Affect normal, judgement normal, mood normal. [] EKG: EKG: [] Radiology/Procedures: Radiology/Procedures: [] Impressions: INDICATION: Reason: CHEST PAIN, HX TRIPLE BYPASS, ASTHMA, SMOKER / Spl. Instructions: / History: COMPARISON: May 02, 2020 FINDINGS: Single view of chest obtained. Postoperative changes to the mediastinum with calcific atherosclerosis as well as postsurgical clips. Relative haziness at the lung bases without definite consolidation elsewhere in the lungs. IMPRESSION: * Hazy opacity at lung bases. A portion of this is likely secondary to overlap of soft tissue structures but superimposed atelectasis or infiltrate is not excluded given this finding. Electronically signed by: Sam Mancini MD (08/08/2020 2:05 PM) [id number] DICTATED AND SIGNED BY: SAM MANCINI MD DATE: 08/08/20 1407 CC: JOSE LUIS DURAN DO; SHARON WILLIS MD ~ Course & Med Decision Making: Course & Med Decision Making Pertinent Labs and Imaging studies reviewed. (See chart for details) The patient's labs are unremarkable. Her troponin is negative. Her EKG is unremarkable. The patient continues to be pain-free after her nitro. Her heart score is a 3. Given her recent cardiac cath and evaluation by flight engineer, this sounds like an exacerbation of her angina. I have offered to admit the patient or let her go home. The patient would prefer to go home. If her symptoms return, she will come back to the emergency room. She is stable for discharge at this time. [] Gabion Disclaimer: Dragsarmad Disclaimer: This electronic medical record was generated, in whole or in part, using a voice recognition dictation system. Departure Departure: Impression: Primary Impression: Chest pain due to CAD Disposition: 01 HOME/RESIDENCE PRIOR TO ADM Condition: STABLE Referrals: SHARON WILLIS MD (PCP) Patient Instructions: Angina Justification of Admission: Justification of Admission: Justification of Admission Dx: N/A JOSE LUIS DURAN DO Aug 08, 2020 13:38
[2020-08-08 13:55] LABS: BASO % 0 % (0-3); EOS # 0.3 x10^3/uL (0.0-0.7); EOS % 4 % (0-3); HEMATOCRIT 39.7 % (36.0-47.0); HEMOGLOBIN 13.2 g/dL (12.0-15.5); LYMPH # 2.4 x10^3/uL (1.0-4.8); LYMPH % 28 % (24-48); MEAN CORPUSCULAR HEMOGLOBIN 29 pg (25-35); MEAN CORPUSCULAR HGB CONC 33 g/dL (31-37); MEAN CORPUSCULAR VOLUME 87 fL (79-100); MONO # 0.6 x10^3/uL (0.0-1.1); MONO % 7 % (0-9); NEUT # 5.1 x10^3uL (1.8-7.7); NEUT % 60 % (31-73); PLATELET COUNT 176 x10^3/uL (140-400); RED BLOOD COUNT 4.55 x10^6/uL (3.50-5.40); RED CELL DISTRIBUTION WIDTH 13.5 % (11.5-14.5); WHITE BLOOD COUNT 8.5 x10^3/uL (4.0-11.0)
--- NOTE | 2020-08-08 14:08 | RAD ---
INDICATION: Reason: CHEST PAIN, HX TRIPLE BYPASS, ASTHMA, SMOKER / Spl. Instructions: / History: COMPARISON: May 02, 2020 FINDINGS: Single view of chest obtained. Postoperative changes to the mediastinum with calcific atherosclerosis as well as postsurgical clips. Relative haziness at the lung bases without definite consolidation elsewhere in the lungs. IMPRESSION: * Hazy opacity at lung bases. A portion of this is likely secondary to overlap of soft tissue structures but superimposed atelectasis or infiltrate is not excluded given this finding. Electronically signed by: Scott López MD (08/08/2020 2:05 PM) [id number]
[2020-08-08 14:23] LABS: CALCIUM 9.1 mg/dL (8.5-10.1); CREATININE 0.9 mg/dL (0.6-1.0); GFR 64.1
[2020-08-08 14:28] LABS: ALBUMIN 3.5 g/dL (3.4-5.0); ALBUMIN/GLOBULIN RATIO 0.9 (1.0-1.7); TOTAL BILIRUBIN 0.4 mg/dL (0.2-1.0); TOTAL PROTEIN 7.2 g/dL (6.4-8.2)
[2020-08-08 14:40] VITALS: BP 118/60
--- NOTE | 2020-08-08 15:09 | EKG ---
[address] [address] Test Date: 2020-08-08 Test Time: 13:15:46 Pat Name: EMILY JONES Department: Room: Gender: F [employer]: ALAN : 1960 Requested By: JOSE LUIS DURAN Order Number: [id number] Reading MD: Joselito Calderón MD Measurements Intervals [place] Rate: 55 P: 60 WY: 148 QRS: 64 QRSD: 82 T: 36 QT: 454 QTc: 437 Interpretive Statements SINUS RHYTHM prolonged qt consider anterior ischemia Electronically Signed On 08-09-2020 12:38:13 CDT by Joselito Calderón MD
== END 2020-08-08 14:40 | disposition home or self-care (01) ==
LOC: ER 13:15
DX: R07.89 Other chest pain (principal); I10 Essential (primary) hypertension; E03.9 Hypothyroidism, unspecified; I25.810 Atherosclerosis of coronary artery bypass graft(s) without angina pectoris; F17.210 Nicotine dependence, cigarettes, uncomplicated; Z88.5 Allergy status to narcotic agent; Z88.1 Allergy status to other antibiotic agents
CPT/HCPCS: 36415; 71045; 80053; 84484; 85025; 93005; 99285

== ENCOUNTER → 2020-12-22 | Outpatient (CLI) | payer OTHER, MEDICAID ==
--- NOTE | 2020-12-22 15:52 | RAD ---
Exam: Left wrist 3 views INDICATION: Wrist pain TECHNIQUE: Frontal, lateral and oblique views of the left wrist Comparisons: None FINDINGS: Bone mineralization is normal. No acute or healed fractures. Soft tissues are unremarkable. Joint spa jay are well-maintained. IMPRESSION: No acute osseous abnormality. Electronically signed by: Ronda Nunez MD (12/22/2020 3:50 PM) [facility]
== END ==
LOC: RAD 15:25
PROVIDERS: ATTEND Nurse Practitioner Family
DX: M25.532 Pain in left wrist (principal)
CPT/HCPCS: 73110

== ENCOUNTER → 2021-01-28 | Outpatient (CLI) | payer OTHER, MEDICAID ==
--- NOTE | 2021-01-28 15:15 | RAD ---
XR CHEST 2V History: Reason: Cough, congesion, Covid 10/2020 / Spl. Instructions: / History: Comparison: August 08, 2020 Findings: No consolidation or pleural effusion. Normal heart size. No pneumothorax. Prior median sternotomy. Impression: 1. No acute cardiopulmonary process. Electronically signed by: Louie Curry DO (01/28/2021 3:13 PM) [facility]
== END ==
LOC: DXRAD 14:55
PROVIDERS: ATTEND Family Medicine
DX: R06.02 Shortness of breath (principal)
CPT/HCPCS: 71046

== ENCOUNTER → 2021-02-14 | Outpatient (CLI) | payer OTHER, MEDICAID ==
[~2021-02-14] MED LIST changes: +ALBU8HFA2 IH; +ASPI-630 PO; +GABA-585 PO; +LEVO88CA3 PO; +METO25TA4 PO; +MOME13HF2 IH; +OMEP20CA16 PO; +SERT100T PO
== END ==
LOC: LAB 13:00
PROVIDERS: ATTEND Nurse Anesthetist, Certified Registered
DX: Z01.812 Encounter for preprocedural laboratory examination (principal); Z20.822 Contact with and (suspected) exposure to COVID-19
CPT/HCPCS: U0003; U0005

== ENCOUNTER → 2021-02-17 | Day surgery (SDC) | payer OTHER, MEDICAID ==
[~2021-02-17] MED LIST changes: +IPRATRPIUM/ALBUTEROL 0.5/2.5MG 3 ML NEBU. NEB PRN; +IV RINGERS SOLUTION,LACTATED 1,000 ML IV SCH; +LIDOCAINE 2% PF 5 ML VIAL. ONE; +MIDAZOLAM HCL PF 2 MG/2 ML VIAL. IV ONE; +ONDANSETRON PF 4 MG/2 ML VIAL. IV PRN; +PROPOFOL 10,000 MCG/ML (20ML) VIAL IV ONE
[2021-02-17 13:13] VITALS: BP 121/58
--- NOTE | 2021-02-23 17:07 | PATHOLOGY ---
[facility] Accession Number: [id number] . 01 Material submitted: . PART A: sigmoid colon - SIGMOID COLON POLYP X2 BIOPSY PART B: colon - TRANSVERSE COLON POLYP - COLD SNARE. Modifiers: transverse . 01 Clinical history: . RECTAL BLEEDING COLONOSCOPY . 02 Diagnosis: A. Colon biopsies, sigmoid colon polyp x 2: - Tubular adenomas. - Single hyperplastic mucosal-associated lymphoid aggregate. . B. Colon biopsy, transverse colon polyp: - Segments of fecal material - no polyp identified. ([facility] 02/23/2021) [facility] 02/23/2021 0951 Local . 02 Comment: There is no high grade dysplasia or evidence of malignancy. . 02 Electronically signed: . Surendra Luong MD, Pathologist NPI- [id number] . 01 Gross description: . A. Received in formalin labeled "Vehlewald, Tash, sigmoid colon polyp" are 2 flores-brown soft tissue fragments measuring in aggregate 0.6 x 0.5 x 0.2 cm. The specimen is submitted entirely in A1. . B. Received in formalin labeled "Vehlewald, Tash, transverse colon polyp, cold snare" are multiple flores-brown fragments of possible soft tissue or amorphous material measuring in aggregate 2.7 x 1.2 x 0.1 cm. The mucosa is not definitively identified within the container. The specimen is submitted entirely in B1. ([facility]; 02/22/2021) [facility] 02/22/2021 1031 Local . 02 Pathologist provided ICD-10: D12.5, K62.5 . 02 CPT . 385384, 972061 Specimen Comment: A courtesy copy of this report has been sent to [phone] Specimen Comment: [id number] Specimen Comment: Report sent to / DR RINCON Performed at: 01 [facility] [address], [place] [id number] MD Rey Villafana MD Phone: [phone] Performed at: 02 [facility] [place] [address] [place], [place] [id number] MD Surendra Luong MD Phone: [phone]
== END | disposition home or self-care (01) ==
LOC: SURG 11:20
PROVIDERS: ATTEND Internal Medicine Gastroenterology
DX: K92.1 Melena (principal); K57.30 Diverticulosis of large intestine without perforation or abscess without bleeding; K64.8 Other hemorrhoids; D12.5 Benign neoplasm of sigmoid colon; K63.89 Other specified diseases of intestine; J44.9 Chronic obstructive pulmonary disease, unspecified; E03.9 Hypothyroidism, unspecified; I25.810 Atherosclerosis of coronary artery bypass graft(s) without angina pectoris; G43.709 Chronic migraine without aura, not intractable, without status migrainosus; I48.91 Unspecified atrial fibrillation; F41.9 Anxiety disorder, unspecified; I25.2 Old myocardial infarction; Z95.1 Presence of aortocoronary bypass graft; Z79.899 Other long term (current) drug therapy; Z88.5 Allergy status to narcotic agent; Z88.8 Allergy status to other drugs, medicaments and biological substances; Z87.440 Personal history of urinary (tract) infections
CPT/HCPCS: 45380; 45381; 45385; 88305; J2001; J2704; J7120

== ENCOUNTER → 2021-03-20 | Outpatient (CLI) | payer OTHER, MEDICAID ==
[2021-02-17 13:13] VITALS: BP 121/58
[~2021-03-20] MED LIST changes: -IPRATRPIUM/ALBUTEROL 0.5/2.5MG 3 ML NEBU. NEB PRN; -IV RINGERS SOLUTION,LACTATED 1,000 ML IV SCH; -LIDOCAINE 2% PF 5 ML VIAL. ONE; -MIDAZOLAM HCL PF 2 MG/2 ML VIAL. IV ONE; -ONDANSETRON PF 4 MG/2 ML VIAL. IV PRN; -PROPOFOL 10,000 MCG/ML (20ML) VIAL IV ONE
[2021-03-20] MEDS: IOHEXOL 300 MG/ML 75 ML VIAL. IV ONE (08:45)
--- NOTE | 2021-03-20 09:48 | RAD ---
CT chest with contrast: History: COPD worsening cough Axial helical images of the chest were obtained after the administration of 100 cc of Isovue 370 IV c ontrast. Comparison: none Findings: There is diffuse emphysematous changes which appears worse in the upper lungs. There are few small me diastinal and hilar lymph nodes but no abnormally enlarged lymph nodes. There is evidence of previous median sternotomy. There is significant coronary artery calcification. Impression: 1. Diffuse emphysematous changes. 2. Coronary artery calcifications and previous median sternotomy. End Impression PQRS Compliance Statement: One or more of the following individualized dose reduction techniques were utilized for this examinat ion: 1. Automated exposure control 2. Adjustment of the mA and/or kV according to patient size 3. Use of iterative reconstruction technique Electronically signed by: Toy Ruiz III, MD (03/20/2021 9:46 AM) [id number]
== END ==
LOC: CT 08:28
PROVIDERS: ATTEND Family Medicine
DX: J43.9 Emphysema, unspecified (principal)
CPT/HCPCS: 71260; Q9967

== ENCOUNTER 2021-05-17 11:35 | Emergency (ER) | payer OTHER, MEDICAID ==
[~2021-05-17] VITALS: Ht 154.9 cm; Wt 79.4 kg
--- NOTE | 2021-05-17 12:28 | RAD ---
Exam Date: 05/17/2021 12:00 PM XR FOOT_RIGHT 3 VIEWS Indication: Reason: fall, hurts on plantar suface of foot just anterior to calcaneus / Spl. Instructi ons: / History: . FINDINGS/ IMPRESSION: Mild calcaneal enthesopathy is present. No acute fracture or dislocation. Alignment and joint spaces are maintained. The soft tissues are w ithin normal limits. Electronically signed by: Miguel Allan MD (05/17/2021 12:26 PM) [id number]
--- NOTE | 2021-05-17 12:35 | PHYS DOC ---
Past History Past Medical History: Heart Disease, Hypertension, Hypothyroid Past Surgical History: Coronary Bypass Surgery, , Other Additional Past Surgical Histo: THYROID, EYES Smoking: Cigarettes, Less than 1pk/day Alcohol Use: Rarely Drug Use: None General Adult EDM: Chief Complaint: FOOT INJURY PAIN HPI: HPI: Patient is a 7-year-old female who presents with right foot pain after injuring herself today. Patient reports that 20 minutes prior to arrival she was walking with her walker when she tripped and fell over the walker in which she uses due to frequent falls from chronic back pain. She is complaining of pain to the plantar aspect of her right foot proximal to her heel. She denies radiation of pain, she rates the pain 6 out of 10, describes it as a burning pain that is co nstant, worse with bearing weight, improved with rest. Patient reports that she was able to bear weight and ambulate following the fall. She denies any dizziness that attributed to her fall, chest pain, shortness of breath. She denies hitting her head or loss of consciousness, she does not take blood thinners. Patient denies any additional injuries from fall. Review of Systems: Review of Systems: 14 body systems of the review of systems have been reviewed. See HPI for p ertinent positive and negative responses, otherwise all other systems are negative, nonpertinent or noncontributory Allergies: Allergies: Allergies Coded Allergies Type Severity Reaction Last Updated Verified cefdinir Allergy Unknown 09/14/19 Yes codeine Allergy Unknown 09/14/19 Yes Physical Exam: PE: Constitutional: Well developed, well nourished, no acute distress, non-toxic appearance. [] HENT: Normocephalic, atraumatic, bilateral external ears normal, oropharynx moist, no oral exudates, nose normal. [] Eyes: PERRL, conjunctiva normal, no discharge. [] Neck: Normal range of motion, no tenderness, supple, no stridor. [] Cardiovascular: Good peripheral perfusion Lungs & Thorax: Normal work of breathing, no tachypnea Abdomen: Bowel sounds normal, soft, no tenderness, no masses, no pulsatile masses. [] Skin: Warm, dry, no erythema, no ecchymosis, no rash. [] Back: Chronic back pain and sciatica, no bony spinal tenderness with palpation. Extremities: No tenderness, no cyanosis, no clubbing, ROM intact, no edema. Right foot: Pain with palpation to plantar aspect of right foot proximal to the heel along the area of plantar fascia, no swelling, no wounds, no obvious deformity, neurologically intact, good range of motion toes and ankle, Achilles tendon appears intact. [] Neurologic: Alert and oriented X 3, normal motor function, normal sensory function, no focal deficits noted. [] Psychologic: Affect normal, judgement normal, mood normal. [] Current Patient Data: Vital Signs: Vital Signs Date Time Temp Pulse Resp B/P (MAP) Pulse Ox O2 Delivery O2 Flow Rate FiO2 05/17/21 11:40 98.2 62 24 119/70 96 Room Air EKG: EKG: [] Radiology/Procedures: Radiology/Procedures: PROCEDURE: FOOT RIGHT 3V Exam Date: 05/17/2021 12:00 PM XR FOOT_RIGHT 3 VIEWS Indication: Reason: fall, hurts on plantar suface of foot just anterior to calcaneus / Spl. Instructions: / History: . FINDINGS/ IMPRESSION: Mild calcaneal enthesopathy is present. No acute fracture or dislocation. Alignment and joint spaces are maintained. The soft tissues are within normal limits. Electronically signed by: Heidi Allan MD (05/17/2021 12:26 PM) [id number] DICTATED AND SIGNED BY: HEIDI ALLAN MD DATE: 05/17/21 1222 CC: TEAGAN RINCON MD; [employer]J [employer] ASSOCIATE ~MTH0 0 Heart Score: C/O Chest Pain: No Risk Factors: Risk Factors: DM, Current or recent (<one month) smoker, HTN, HLP, family history of CAD, obesity. Risk Scores: Score 0 - 3: 2.5% MACE over next 6 weeks - Discharge Home Score 4 - 6: 20.3% MACE over next 6 weeks - Admit for Clinical Observation Score 7 - 10: 72.7% MACE over next 6 weeks - Early Invasive Strategies Course & Med Decision Making: Course & Med Decision Making Pertinent Labs and Imaging studies reviewed. (See chart for details) Patient is a 7-year-old female being seen today for right foot pain after falli ng with her walker today. The x-ray of her foot showed no acute fracture but does show mild calcaneal enthesopathy is present could be contributing to her plantar fascia strain. Patient does have pain with palpation along her plantar fascia. It is likely that patient did strain her plantar fascia during the fall. Patient's foot placed in Cristiano wrap. She was educated on the importance of stretching for her foot pain, the use of anti-inflammatory medications, ice, and elevation. Patient is agreeable to care plan. Dragon Disclaimer: Dragon Disclaimer: This electronic medical record was generated, in whole or in part, using a voice recognition dictation system. Departure Departure: Impression: Primary Impression: Plantar fasciitis, right Disposition: HOME / SELF CARE / HOMELESS Condition: GOOD Referrals: TEAGAN RINCON MD (PCP) Patient Instructions: Fall Prevention and Home Safety, Bqzq-ru-Avko, Plantar Fasciitis Additional Instructions: Thank you for choosing [facility] and allowing me to participate in your care. You were seen in the ER today for right foot pain following injury. As we discussed, it is likely that you have strained your plantar fascia on the bottom of your right foot. As we discussed, you should try shoe inserts, stretching, rolling the ball of your foot on a tennis ball, ice/heat, and anti-inflammatory medications for your pain. Please follow-up with your primary care doctor tomorrow following your ER visit. If your symptoms worsen or you develop inability to walk, fall, increased pain, increased back pain, headache, dizziness, vision changes please return. EMERGENCY DEPARTMENT GENERAL DISCHARGE INSTRUCTIONS Thank you for coming to [facility] (ED) today and trusting us with you care. We trust that you had a positivie experience in our Emergency Department. If you wish to speak to the department management, you may call the director at [phone]. YOUR FOLLOW UP INSTRUCTIONS ARE FOLLOWS: 1. Do you have a private Doctor? If you do not have a private doctor, please ask for a resource list of physicians or clinics that may be able to assist you with follow up care. 2. The Emergency Physician has interpreted your x-rays. The X-Ray specialist will also review them. If there is a change in the findings, you will be notified in 48 hours when at all possible. 3. A lab test or culture has been done, your results will be reviewed and you will be notified if you need a change in treatment. ADDITIONAL INSTRUCTIONS AND INFORMATION: 1. Your care today has been supervised by a physician who is specially trained in emergency care. Many problems require more than one evaluation for a complete diagnosis and treatment. We recommend that you schedule your follow up appointment as recommended to ensure complete treatment of you illness or injury. If you are unable to obtain follow up care and continue to have a problem, or if your condition worsens, we recommend that you return to the ED. 2. We are not able to safely determine your condition over the phone nor are we able to give sound medical advice over the phone. For these safety reasons, if you call for medical advice we will ask you to come to the ED for further evaluation. 3. If you have any questions regarding these discharge instructions please call the ED at [phone]. SAFETY INFORMATION: In the interest of safety, wellness, and injury prevention; we encourage you to wear your sealbelt, if you smoke; quite smoking, and we encourage family to use a protective helmet for bicycling and other sporting events that present an increased risk for head injury. IF YOUR SYMPTOMS WORSEN OR NEW SYMPTOMS DEVELOP, OR YOU HAVE CONCERNS ABOUT YOUR CONDITION; OR IF YOUR CONDITION WORSENS WHILE YOU ARE WAITING FOR YOUR FOLLOW UP APPOINTMENT; EITHER CONTACT YOUR PRIMARY CARE DOCTOR, THE PHYSICIAN WHOSE NAME AND NUMBER YOU WERE GIVEN, OR RETURN TO THE ED IMMEDIATELY. EJ [employer] F[employer]FILLMENT ASSOCIATE May 17, 2021 12:34
[2021-05-17 12:44] VITALS: BP 121/58
== END 2021-05-17 12:46 | disposition home or self-care (01) ==
LOC: ER 11:35
DX: M72.2 Plantar fascial fibromatosis (principal); G89.29 Other chronic pain; M54.9 Dorsalgia, unspecified; I11.9 Hypertensive heart disease without heart failure; E03.9 Hypothyroidism, unspecified; F17.210 Nicotine dependence, cigarettes, uncomplicated; Z91.81 History of falling; Z95.1 Presence of aortocoronary bypass graft; Z88.1 Allergy status to other antibiotic agents; Z88.5 Allergy status to narcotic agent; W01.0XXA Fall on same level from slipping, tripping and stumbling without subsequent striking against object, initial encounter; Y93.01 Activity, walking, marching and hiking; Y92.89 Other specified places as the place of occurrence of the external cause; Y99.8 Other external cause status
CPT/HCPCS: 73630; 99283

== ENCOUNTER → 2021-07-25 | Outpatient (CLI) | payer OTHER, MEDICAID ==
--- NOTE | 2021-07-25 11:00 | CARD ---
MR#: [id number] Date of Study: 07/25/2021 Ordering Physician: CHHAYA CALDERÓN, Referring Physician: CHHAYA CALDERÓN, Tech: Gayle Nolasco, [facility] APPROVED REPORT EXAM: Two-dimensional and M-mode echocardiogram with Doppler and color Doppler. Other Information Quality : AverageHR: 62bpm INDICATION COPD Cardiac Disease: CAD Surgery/Intervention CABG: Date: 2013 RISK FACTORS Hypertension Hyperlipidemia Smoking 2D DIMENSIONS RVDd2.7 (2.9-3.5cm)Left Atrium(2D)3.1 (1.6-4.0cm) IVSd0.9 (0.7-1.1cm)Aortic Root(2D)2.8 (2.0-3.7cm) LVDd4.9 (3.9-5.9cm)LVOT Diameter2.0 (1.8-2.4cm) PWd1.0 (0.7-1.1cm)LVDs2.9 (2.5-4.0cm) FS (%) 39.9 %SV79.1 ml LVEF(%)70.4 (>50%) Aortic Valve AoV Peak Jesus.125.6cm/sAoV VTI32.4cm AO Peak GR.6.3mmHgLVOT Peak Jesus.112.5cm/s LVOT VTI 26.59cmAO Mean GR.3mmHg DAVE (VMAX)2.97xm7OHF (VTI)2.70cm2 Mitral Valve MV E Cqmgfogb33.2cm/sMV E Peak Gr.2mmHg MV DECEL [id number] A Vkrxpixw18.9cm/s MV E Mean Gr.1mmHgE/A Ratio1.4 Pulmonary Valve PV Peak Jjgfknwo25.5cm/sPV Peak Grad.3mmHg Tricuspid Valve TR P. Kncluypq275pd/sRAP JWROOTCC5kbBg TR Peak Gr.42jeQdKNUD18waWh Pulmonary Vein S1 Ywzxwocu10.3cm/sD2 Qishzgqt09.5cm/s LEFT VENTRICLE The left ventricle is normal size. There is mild concentric left ventricular hypertrophy. The left ve ntricular systolic function is normal and the ejection fraction is within normal range. The Ejection Fraction is 55-60%. Septal motion suggestive of prior sternotomy. Otherwise, there is normal LV segme ntal wall motion. Transmitral Doppler flow pattern is Grade II-pseudonormal filling dynamics. RIGHT VENTRICLE The right ventricle is normal size. There is normal right ventricular wall thickness. The right ventr icular systolic function is normal. ATRIA The left atrium size is normal. The right atrium size is normal. The interatrial septum is intact wit h no evidence for an atrial septal defect or patent foramen ovale as noted on 2-D or Doppler imaging. AORTIC VALVE The aortic valve is normal in structure and function. Doppler and Color Flow revealed no significant aortic regurgitation. Calculated aortic valve area is 2.9 cm2 with maximum pressure gradient of 6 mmH g and mean pressure gradient of 3 mmHg. There is no significant aortic valvular stenosis. MITRAL VALVE The mitral valve is normal in structure and function. There is no evidence of mitral valve prolapse. There is no mitral valve stenosis. Doppler and Color Flow revealed no mitral valve regurgitation note d. TRICUSPID VALVE The tricuspid valve is normal in structure and function. Doppler and Color Flow revealed trace tricus pid regurgitation with an estimated PAP of 36 mmHg. There is no tricuspid valve stenosis. PULMONIC VALVE The pulmonic valve is not well visualized. Doppler and Color Flow revealed no pulmonic valvular regur gitation. There is no pulmonic valvular stenosis. GREAT VESSELS The aortic root is normal in size. The ascending aorta is normal in size. The IVC is normal in size a nd collapses >50% with inspiration. PERICARDIAL EFFUSION There is no evidence of significant pericardial effusion. Critical Notification Critical Value: No <Conclusion> The left ventricular systolic function is normal and the ejection fraction is within normal range. Th e Ejection Fraction is 55-60%. Septal motion suggestive of prior sternotomy. Otherwise, there is normal LV segmental wall motion. Signed by : Chhaya Calderón, Electronically Approved : 07/25/2021 10:59:58
== END ==
LOC: ECHO 08:56
PROVIDERS: ATTEND Internal Medicine Cardiovascular Disease
DX: I51.7 Cardiomegaly (principal); I25.10 Atherosclerotic heart disease of native coronary artery without angina pectoris
CPT/HCPCS: 93306

== ENCOUNTER → 2021-07-26 | Outpatient (CLI) | payer OTHER, MEDICAID ==
[~2021-07-26] MED LIST changes: +REGADENOSON 0.4 MG/5 ML DISP.SYRIN. IV ONE
--- NOTE | 2021-07-27 09:53 | RAD ---
MR#: [id number] Date of Study: 07/26/2021 Ordering Physician: CHHAYA GAR, Referring Physician: FREDA GASCA Tech: RT Dustin SinghR) (N) APPROVED REPORT Test Type: Pharmacological Stress Nurse/Tech: RT Samantha (Giovanni) (N) Test Indications: exertional dyspnea Cardiac History: 2013 Medications: see ehr Medical History: asthma, COPD, smoker, hypertension Resting ECG: sinus rhythm Resting Heart Rate: 54 bpm Resting Blood Pressure: 133/55mmHg Pretest Chest Pain: None Nurse/Tech Notes Consent: The procedure was explained to the patient in lay terms. Informed consent was witnessed. Yaakov eout was entered into [employer]. History and Stress Test performed by RT Ten Singh) (N) Pharm. Details Pharmacologic stress testing was performed using 0.4mg per 5ml of regadenoson given intravenously ove r 7-10 seconds. Stress Symptoms Nausea, Dyspnea POST EXERCISE Reason for Termination: Infusion complete Max HR: 93 bpm Max Blood Pressure: 130/49mmHg INTERPRETATION Stress EKG Conclusion: Mild lateral non-specific ST/T wave changes suggestive but not diagnostic of i schemia. Imaging Protocol IMAGE PROTOCOL: Rest Tc-99m/stress Tc-99m 1 day Rest: Stress: Viability: Radiopharm.Tc99m ZsmyojdctOx89x Sestamibi Jurh01eLz 30.6mCi Duration 15min. 10min. Img Date 07/26/2021 07/26/2021 Inj-Img Ykrh23qbx. 60min. Rest Admin Site:IV - Right AntecubitalAdministrator: RT Samantha (Giovanni)(N) Stress Admin Site: IV - Right AntecubitalAdministrator: RT Ten Singh)(N) STRESS DATA End Diast. Vol.72.0mlAv. Heart Rate61.0bpm End Syst. Vol.11.0mlCO Index BSA0.0L/min Myocardial Ztoe353.0gEject. Rjenwfyr25.0% Stress Rates Pk. Fill Rate3.44EDV/secLVtime Pk. Fill 164.31msec Pk. Empty Rate3.04ESV/secLVtime Pk. Pmbej347.08msec 1/3 Pk. Fill1.75EDV/sec Stress Scores Regional WT0.00Summed WT0.00 Regional WM0.00Summed WM1.00 The rest and stress images show normal perfusion, normal contraction and thickening. LV Perf. Quant 17 Seg. SSS0.00 17 Seg. SRS0.00 17 Seg. SDS0.00 Stress Defect Extent (% LAD)0.00Rest Defect Extent (% LAD)0.00Rev. Defect Extent (% LAD)0.00 Stress Defect Extent (% LCX) 0.00Rest Defect Extent (% LCX)0.00Rev. Defect Extent (% LCX)0.00 Stress Defect Extent (% RCA)0.00Rest Defect Extent (% RCA)0.00Rev. Defect Extent (% RCA)0.00 Stress Defect Extent (% SANKET)0.00Rest Defect Extent (% SANKET)0.00Rev. Defect Extent (% SANKET)0.00 Other Information Quality:Good Risk Assessment: Low Risk Conclusion 1. Mildly abnormal EKG with non-specific lateral TW changes. 2. Normal perfusion at stress/rest. 3. Normal EF at > 60% 4. Low risk study. Signed by : Chhaya Gar, Electronically Approved : 07/27/2021 09:53:25
== END ==
LOC: NM 07:33
PROVIDERS: ATTEND Internal Medicine Cardiovascular Disease
DX: R94.31 Abnormal electrocardiogram [ECG] [EKG] (principal); I10 Essential (primary) hypertension; J45.909 Unspecified asthma, uncomplicated
CPT/HCPCS: 78452; 93017; A9500; J2785

== ENCOUNTER → 2021-09-14 | Day surgery (SDC) | payer OTHER ==
[~2021-09-14] MED LIST changes: -REGADENOSON 0.4 MG/5 ML DISP.SYRIN. IV ONE
[2021-09-14 09:45] VITALS: BP 137/65
== END | disposition home or self-care (01) ==
LOC: SURG 09:37
PROVIDERS: ATTEND Anesthesiology
DX: M54.59 Other low back pain (principal); M19.90 Unspecified osteoarthritis, unspecified site; I50.9 Heart failure, unspecified; G89.29 Other chronic pain; I25.10 Atherosclerotic heart disease of native coronary artery without angina pectoris; J44.9 Chronic obstructive pulmonary disease, unspecified; F17.210 Nicotine dependence, cigarettes, uncomplicated; Z98.890 Other specified postprocedural states; Z79.899 Other long term (current) drug therapy
CPT/HCPCS: 99214; G0463

== ENCOUNTER → 2021-12-25 | Outpatient (CLI) | payer OTHER ==
[2021-09-14 09:45] VITALS: BP 137/65
--- NOTE | 2021-12-25 17:04 | RAD ---
EXAM: Right knee, 3 views. HISTORY: Pain. COMPARISON: None. FINDINGS: 3 views of the right knee are obtained. There is no fracture, dislocation or subluxation. T here is mild patellofemoral compartment spurring. There is no joint effusion. IMPRESSION: Mild patellofemoral compartment osteoarthritis. Electronically signed by: Aspen Ahn MD (12/25/2021 5:01 PM) [id number]
== END ==
LOC: RAD 16:42
PROVIDERS: ATTEND Physician Assistant
DX: M17.11 Unilateral primary osteoarthritis, right knee (principal); M76.891 Other specified enthesopathies of right lower limb, excluding foot
CPT/HCPCS: 73562

== ENCOUNTER → 2022-03-22 | Outpatient (CLI) | payer OTHER, MEDICAID ==
[2021-09-14 09:45] VITALS: BP 137/65
--- NOTE | 2022-03-22 10:07 | RAD ---
EXAM: Head CT without contrast. HISTORY: Amnesia. TECHNIQUE: Computed tomographic images of the head were obtained without contrast. *One or more of the following individualized dose reduction techniques were utilized for this examina tion: 1. Automated exposure control. 2. Adjustment of the mA and/or kV according to patient size. 3. Use of iterative reconstruction technique. COMPARISON: 11/13/2017. FINDINGS: There is no acute or subacute extra-axial or intraparenchymal hemorrhage. There is no mass effect or midline shift. There is no hydrocephalus. There is a suspected small chronic infarct in the right centrum semiovale. There is cerebral volume l oss with increased bifrontal extra-axial space.. The visualized portions of the orbits, paranasal sinuses and mastoid air cells are unremarkable. No s uspicious calvarial lesion is seen. IMPRESSION: 1. No acute intracranial finding. 2. 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 3. Cerebral volume loss. Electronically signed by: Aspen Ahn MD (03/22/2022 10:04 AM) [id number]
== END ==
LOC: CT 09:25
PROVIDERS: ATTEND Family Medicine
DX: G93.89 Other specified disorders of brain (principal); R41.3 Other amnesia
CPT/HCPCS: 70450